=== PATIENT | male | born 1995 | race Caucasian/White ===

== ENCOUNTER 2017-01-16 14:22 | Emergency (ER) | payer BC, OTHER ==
[~2017-01-16] VITALS: Ht 193 cm; Wt 92.7 kg
[2017-01-16 14:23] VITALS: BP 165/75
[2017-01-16] MEDS ORDERED: AZITHROMYCIN 500 MG TABLET PO ONE (15:00)
[2017-01-16] MEDS ORDERED: CEFTRIAXONE 250 MG IM ONE (15:00)
[2017-01-16] MEDS ORDERED: AZITHROMYCIN 250 MG TABLET ONE (15:12)
[2017-01-16] MEDS ORDERED: CEFTRIAXONE 1,000 MG ONE (15:12)
== END 2017-01-16 16:01 | disposition home or self-care (01) ==
LOC: ED 15:55
DX: N34.2 Other urethritis (principal)
CPT/HCPCS: 81001; 87086; 87491; 87591; 96372; 99284; J0696